=== PATIENT | female | born 1950 | race Caucasian/White ===

== ENCOUNTER 2017-06-09 14:43 | Outpatient (CLI) | payer MEDICARE, BC ==
--- NOTE | 2017-06-16 11:32 | MMO ---
BILATERAL SCREENING MAMMOGRAM: Date: 06/09/2017 HISTORY: A 67-year-old female. Routine screening mammography. COMPARISON: 10/19/2015, 03/05/2015, 05/13/2013, 03/10/2012. TECHNIQUE: CC and MLO views of both breasts are submitted for interpretation. This patient's mammogram is reviewed with the assistance of computer-aided detection. FINDINGS: The breasts are composed of heterogeneously dense fibroglandular tissue which limits sensitivity of m ammography and the detection of underlying malignancy. Bilaterally, no suspicious dominant mass, architectural distortion, or suspicious calcifications. Bi lateral benign-appearing calcifications are identified. IMPRESSION: BIRADS 2: Benign Finding(s) RECOMMENDATION: Annual mammogram. POS: [facility]
== END 2017-06-09 14:44 | disposition home or self-care (01) ==
LOC: SCSMAMMO 14:43
PROVIDERS: ATTEND Obstetrics & Gynecology
DX: Z12.31 Encounter for screening mammogram for malignant neoplasm of breast (principal)
CPT/HCPCS: 77067; G0202

== ENCOUNTER 2018-01-25 15:14 | Emergency (ER) | payer MEDICARE, BC ==
[~2018-01-25 15:14] MED LIST: ISOVUE-370 76%-LOCM 1 ML ONE
[2018-01-25 16:06] LABS: #Eosinphils 0.1 thou/uL (0.0-0.7); #Lymphocytes 1.3 thou/uL (1.20-3.40); #Monocytes 0.9 thou/uL (0.11-0.59); #Neutrophils 8.1 thou/uL (1.40-6.50); %Basophils 0.2 % (0.0-1.0); %Eosinophils 0.7 % (0.0-10.0); %Lymphocytes 12.3 % (21.0-51.0); %Monocytes 8.5 % (0.0-10.0); %Neutrophils 78.2 % (42.0-75.0); Mean Corpuscular HGB CONC 34.7 g/dL (32.0-36.0); Mean Corpuscular Hemoglobin 36.1 pg (27.0-31.0); Mean Platelet Volume 6.3 fL (7.4-10.4); Platelet Count 219 thou/uL (130-400); RBC Distribution Width 12.6 % (11.5-14.5); Red Blood Cell (RBC) Count 3.31 mill/uL (4.20-5.40); White Blood Cell (WBC) Count 10.4 thou/uL (4.8-10.8)
[2018-01-25 16:25] LABS: ALT (SGPT) 27 U/L (8-55); AST (SGOT) 26 U/L (5-34); Albumin 4.6 g/dL (3.4-4.8); Alkaline Phosphatase 67 U/L (40-150); Anion Gap 13 mmol/L (10-20); BUN (Urea Nitrogen) 11 mg/dL (9.8-20.1); Bilirubin, Total 0.7 mg/dL (0.2-1.2); Calc. Creatinine Clearance 0 mL/min (70-130); Carbon Dioxide 23 mmol/L (23-31); Chloride 106 mmol/L (98-107); Estimated GFR-MDRD 85; Globulin 2.7 g/dL (2.4-3.5); Glucose 104 mg/dL (80-115); Lipase 10 U/L (8-78); Potassium 3.5 mmol/L (3.5-5.1); Protein, Total 7.3 g/dL (6.0-8.3); Sodium 138 mmol/L (136-145)
[2018-01-25 18:41] LABS: CKMB 1.8 ng/mL (0-6.6); Troponin I Less than 0.010 ng/mL (< 0.028)
--- NOTE | 2018-01-25 19:33 | RAD ---
PORTABLE CHEST ONE VIEW: 01/25/2018 5:59 p.m. HISTORY: Chest pain. Abdominal pain. Nausea. Diarrhea. COMPARISON: 10/19/2012 FINDINGS: Left-sided AICD remains in place. Heart size is borderline. Lungs are well expanded without focal a reas of consolidation, pneumothoraces, newton pulmonary edema, or pleural effusions seen. IMPRESSION: No acute process. POS: [facility]
--- NOTE | 2018-01-25 19:56 | CT ---
CT ABDOMEN AND PELVIS WITH IV CONTRAST: HISTORY: Diffuse abdominal pain and diarrhea. The patient has a history of CML and is being treated with chem otherapy currently. COMPARISON: There are no previous exams for comparison. FINDINGS: The lung bases are clear. The liver, spleen, pancreas, and adrenal glands are normal. There are low density lesions in the kidneys, likely cysts, the largest measuring 2.5 cm, in the left renal cortex . No free air, free fluid, or lymphadenopathy is seen in the abdomen or pelvis. The small bowel loops are not abnormally dilated. There is thickening of the wall of the colon with a few colonic diverticula. Degenerative changes are present in the spine. There is no evidence of a neurysmal dilatation of the abdominal aorta. No calcified gallstones are present. The patient appea rs post hysterectomy. IMPRESSION: 1. Findings suspicious for colitis. 2. Mild colonic diverticulosis. 3. Probable renal cysts. Confirmation with bilateral renal ultrasound is recommended. POS: [facility]
[2018-01-25 20:01] LABS: Bilirubin Negative (Negative); Blood, Urine Trace (Negative); Clarity CLEAR (Clear); Glucose, Urine (Dipstick) Negative (Negative); Leukocyte Small (Negative); Nitrite Negative (Negative); Protein, Urine (Dipstick) Negative (Neg-Trace); Urobilinogen 0.2 mg/dL (0.2-1.0); pH, Urine 5.5 (5.0-9.0)
[2018-01-25] MEDS ORDERED: Ondansetron HCl/PF 4 MG/2 ML Vial ONE ×2 (20:01→20:03)
[2018-01-25] MEDS ORDERED: Levofloxacin 500 mg/D5W 100 ml Premix Bag ONE (20:03)
[2018-01-25] MEDS ORDERED: Ketorolac Tromethamine 30 MG/ML VIAL ONE (20:03)
[2018-01-25 20:04] LABS: Bacteria/HPF None Seen HPF (None Seen); Hyaline Casts/LPF 0-3 HYALINE CAST LPF (0-3 Hyaline); Pathc Cast-AUWi Flag 0.58 (0-2.49); RBC/HPF 0-3 HPF (0-3); Squamous Epithelial 0-3 HPF (0-3); WBC/HPF 21-50 HPF (0-3)
[2018-01-25] MEDS ORDERED: metroNIDAZOLE 500 MG in Premix Bag 1 BAG IVPB SCH (20:15)
--- NOTE | 2018-01-25 20:39 | ULT ---
RIGHT UPPER QUADRANT ULTRASOUND: HISTORY: Abdominal pain. FINDINGS: The liver demonstrates a homogeneous echotexture without focal mass or intrahepatic ductal dilatation . No gallstones, gallbladder wall thickening, or pericholecystic fluid is seen, and the right kidney is normal. No free fluid is noted in the Villafana pouch. The visualized portions of the pancreas a re unremarkable. CBD measures 5 mm in diameter. IMPRESSION: No evidence of cholelithiasis. POS: [facility]
== END 2018-01-25 22:10 | disposition home or self-care (01) ==
LOC: ERS 15:14
DX: K52.9 Noninfective gastroenteritis and colitis, unspecified (principal); I42.9 Cardiomyopathy, unspecified; C44.92 Squamous cell carcinoma of skin, unspecified; Z85.6 Personal history of leukemia; Z79.899 Other long term (current) drug therapy
CPT/HCPCS: 36415; 71045; 74177; 76705; 80053; 81003; 81015; 82553; 83690; 83880; 84484; 85025; 93005; 96365; 96367; 96375; J1885; J1956; J2405

== ENCOUNTER 2019-05-16 10:43 | Outpatient (CLI) | payer MEDICARE, BC ==
[~2019-05-16 10:43] MED LIST changes: +EPINEPHrine 1 MG/ML AMP ONE; -ISOVUE-370 76%-LOCM 1 ML ONE; +Iopamidol 300 61% 50 ML VIAL FS ONE; +Lidocaine 1% PF 10 ML AMP ONE
--- NOTE | 2019-05-16 11:38 | CT ---
Cervical spine CT without contrast: 05/16/2019 COMPARISON: None HISTORY: Right shoulder pain with radiculopathy involving the right "shoulder blade" and right arm TECHNIQUE: Axial CT imaging at 2.5 mm intervals from skull base through lung apices without contrast. Coronal and sagittal reformatted imaging obtained. FINDINGS: The C1 ring, dens, occipital condyles, craniocervical junction, and cervicothoracic junctio n appear unremarkable. Imaged lung apices appear unremarkable. C2-3: Minimal facet and uncovertebral osteophyte formation on the right. No osseous cause of signific ant central canal or neural foraminal stenosis. C3-4: Mild facet and uncovertebral osteophyte formation, left greater than right. There is 3 mm of an terolisthesis. Mild left neural foraminal stenosis. C4-5: There is significant right-sided facet and uncovertebral osteophyte formation with mild/moderat e right neural foraminal stenosis. No osseous cause of significant central canal or left neural foraminal stenosis. C5-6: Mild disc space narrowing. Mild bilateral facet and uncovertebral osteophyte formation. Mild ri ght neural foraminal stenosis. No osseous cause of significant central canal or left neural foraminal stenosis. C6-7: Mild uncovertebral osteophyte formation on the right with probable mild right neural foraminal stenosis. No osseous cause of significant central canal or left neural foraminal stenosis. C7-T1: No osseous cause of significant central canal or neural foraminal stenosis. Evaluation for central canal and/or neural foraminal stenosis is limited on routine CT. If clinically warranted, further assessment via CT myelogram may be beneficial. IMPRESSION: Cervical spine degenerative change as described above. No acute osseous abnormality.
--- NOTE | 2019-05-16 13:46 | RAD ---
RIGHT SHOULDER ARTHROGRAM: EXPOSURE: 0.6 minutes; 97.1 mGy*^m2. HISTORY: Right shoulder pain. FINDINGS: Three views right shoulder lab aide radiograph does not demonstrate any fracture or dislocation. Mild de generative change in the acromioclavicular joint space. Visualized right ribs are unremarkable. Successful right shoulder arthrogram. A total of 9 cc of contrast was administered into the joint spa ce. No immediate or postprocedural complications. TECHNIQUE: Consent was obtained to perform a right shoulder arthrogram. Right shoulder was prepped and draped in a sterile fashion. 1% lidocaine, buffered with sodium bicarbonate was used for local anesthesia. Under fluoroscopic guidance, a 22-gauge spinal needle was advanced into the right shoulder joint spac e. Contrast was administered. Patient tolerated the procedure well. No immediate or postprocedural complications. IMPRESSION: Successful right shoulder arthrogram. Transcribed Date/Time: 05/16/2019 2:08 PM
--- NOTE | 2019-05-16 16:20 | CT ---
CT ARTHROGRAM OF THE RIGHT UPPER EXTREMITY: Indication: 69-year-old female with right shoulder pain. Technique: Multiple CT images were obtained of the right shoulder following intraarticular administration of dil matt CT contrast solution. Please see the separately dictated right shoulder arthrogram for details co ncerning the shoulder arthrogram technique. FINDINGS: There is a full thickness tear involving the supraspinatus and anterior infraspinatus near the footpr int measuring approximately 1.3 x 1.2 cm in its greatest mediolateral dimension. The tear originates approximately 1 cm from the level of the footprint. There is some intragenic delamination of the skin into the anterior infraspinatus tendon to the level of the musculotendinous junction. The biceps tendon is located. The biceps anchor complex appears intact. The superior glenolabrum appe ars intact. The glenohumeral articular surface appears relatively well maintained. Small ossicle is s een within the posterior inferior glenoid labrum on Image 30 of Series 2. Anterior inferior glenohume ral labral ligament complex appears intact. There is mild AC joint osteoarthrosis. There is an anterior inferior projecting acromial spur, on Martha ge 52 of the coronal series and Image 31 of the sagittal series, which may predispose to symptoms of impingement. Visualized right lung is clear. There is partial visualization of a multi-lead AICD. No enlarged lymph nodes are evident. IMPRESSION: 1. Full thickness rotator cuff tear involving the posterior supraspinatus and anterior infraspinatus at the level of the conjoined tendon. The tear originates approximately 1 cm from its level of attach ment. There is some intratendinous delamination that extends into the anterior infraspinatus tendon t o the level of the musculotendinous junction. 2. Mild AC joint osteoarthrosis with a prominent anterior inferior projecting acromial spur which may predispose to symptoms of impingement. POS: [facility]
== END 2019-05-16 10:44 | disposition home or self-care (01) ==
LOC: RAD 10:43
PROVIDERS: ATTEND Orthopaedic Surgery
DX: M25.511 Pain in right shoulder (principal); M75.121 Complete rotator cuff tear or rupture of right shoulder, not specified as traumatic; M19.011 Primary osteoarthritis, right shoulder; M47.812 Spondylosis without myelopathy or radiculopathy, cervical region
CPT/HCPCS: 23350; 72125; J0171; J2001; Q9967

== ENCOUNTER 2019-06-27 09:33 | Observation (INO) | payer MEDICARE, BC ==
[2019-06-27] MEDS ORDERED: Lorazepam 2 MG/ML VIAL ONE (09:59)
[2019-06-27 10:07] LABS: #Basophils 0.1 thou/uL (0.0-0.2); #Eosinphils 0.3 thou/uL (0.0-0.7); #Lymphocytes 2.1 thou/uL (1.20-3.40); #Monocytes 0.5 thou/uL (0.11-0.59); #Neutrophils 3.3 thou/uL (1.40-6.50); %Basophils 1.4 % (0.0-1.0); %Eosinophils 4.6 % (0.0-10.0); %Lymphocytes 33.5 % (21.0-51.0); %Monocytes 7.4 % (0.0-10.0); %Neutrophils 53.1 % (42.0-75.0); Hemoglobin 12.7 g/dL (12.0-16.0); Mean Corpuscular HGB CONC 33.2 g/dL (32.0-36.0); Mean Corpuscular Hemoglobin 36.6 pg (27.0-31.0); Mean Platelet Volume 7.2 fL (7.4-10.4); Platelet Count 187 thou/uL (130-400); Red Blood Cell (RBC) Count 3.45 mill/uL (4.20-5.40); White Blood Cell (WBC) Count 6.2 thou/uL (4.8-10.8)
--- NOTE | 2019-06-27 10:26 | RAD ---
PORTABLE CHEST 1 VIEW: DATE: 06/27/2019. TIME: 9:39 a.m. HISTORY: Atrial fibrillation, heart palpitations. FINDINGS: Comparison is made with the exam of 01/25/2018. Left-sided AICD remains in place. The heart size is borderline but stable. The aorta is tortuous. The lungs are expanded without lobar consolidation, pneumothoraces, newton pulmonary edema, or pleural effusions. IMPRESSION: No acute process. POS: [facility]
[2019-06-27] MEDS ORDERED: Diltiazem HCl 125 MG, Admixture Fee 1 EACH in Sodium Chloride 0.9% 100 ML IVPB SCH (10:30)
[2019-06-27 10:34] LABS: ALT (SGPT) 17 U/L (8-55); AST (SGOT) 19 U/L (5-34); Albumin 4.3 g/dL (3.4-4.8); Alkaline Phosphatase 51 U/L (40-110); Anion Gap 12 mmol/L (10-20); BUN (Urea Nitrogen) 11 mg/dL (9.8-20.1); Bilirubin, Total 0.4 mg/dL (0.2-1.2); Calc. Creatinine Clearance 0 mL/min (70-130); Calcium 9.2 mg/dL (7.8-10.44); Carbon Dioxide 25 mmol/L (23-31); Chloride 106 mmol/L (98-107); Estimated GFR-MDRD 63; Globulin 2.2 g/dL (2.4-3.5); Glucose 98 mg/dL (80-115); Lipase 18 U/L (8-78); Potassium 3.8 mmol/L (3.5-5.1); Protein, Total 6.5 g/dL (6.0-8.3); Sodium 139 mmol/L (136-145)
[2019-06-27 10:37] LABS: Band 3 % (5-11); Lymphocytes 30 % (21-51); MDiff Complete? YES; Macrocytosis SLIGHT = 6-15 cells (100X) (0-5/hpf); Monocytes 6 % (0-10); Neutrophil 48 % (42-75); Platelet Morphology Comment Appears Adequate; Reactive Lymphocytes 13 % (0-10)
[2019-06-27] MEDS ORDERED: Ondansetron PF 4 MG/2 ML Vial IVP PRN (12:07)
[2019-06-27] MEDS ORDERED: Acetaminophen 325 MG TAB PO PRN (12:07)
[2019-06-27] MEDS ORDERED: Zolpidem Tartrate 5 MG TAB PO PRN (12:07)
--- NOTE | 2019-06-27 12:26 | PDOC.HOSPP ---
- Objective Result Diagrams: 06/27/19 09:58 06/27/19 09:58
--- NOTE | 2019-06-27 13:11 | ULT ---
LEFT LOWER EXTREMITY VENOUS DOPPLER ULTRASOUND: 06/27/2019 HISTORY: Pain in the left leg. Assess for DVT. COMPARISON: None. TECHNIQUE: Multiplanar tavarez-scale sonographic imaging of the venous structures of the left lower extremity obtai óscar with color-flow and spectral analysis. FINDINGS: The left common femoral vein, greater saphenous vein, profunda femoral vein, femoral vein, popliteal vein and posterior tibial vein are patent. Normal blood flow, augmentation and compression within the deep venous system on the left. No evidence for DVT. IMPRESSION: No evidence for deep venous thrombosis of the left lower extremity. POS: [facility]
--- NOTE | 2019-06-27 13:30 | HP ---
HISTORY OF PRESENT ILLNESS: Ms. Rosario is a patient of Dr. Mark Fletcher, who at 9:00 am this morning had a shooting, burning pain down the inside of her left leg from the groin down to her ankle. It was severe, it is now resolved. She has had a pinched nerve in her cervical spine with pain into her right arm, for which she received an injection into her C-spine 2 weeks ago. When she came in, she was noted to be dizzy with palpitations and the patient based on a rhythm strip, was placed on diltiazem IV for atrial fibrillation with rapid ventricular response. The first 12-lead tracing revealed a paced rhythm with a dual-chamber pacemaker. The patient had no chest pain or smothering spells. PAST MEDICAL HISTORY: Pertinent for a dilated cardiomyopathy, for which she is followed by Dr. Mary Jo Linda. She takes a high dose of beta vitaly and LIYA inhibitor for same. She has an AICD placed because of the cardiomyopathy. 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 CURRENT MEDICATIONS: 1. Coreg 50 mg p.o. b.i.d. 2. Zestril 40 mg a day. 3. Gleevec one tablet a day. 4. Lasix 40 mg p.r.n. edema. 5. Bupropion hydrochloride 150 mg a day. ALLERGIES: SHE IS ALLERGIC TO MORPHINE. SURGICAL HISTORY: Bilateral cataract surgery, left shoulder rotator cuff repair, and right foot surgery 15 to 20 years ago. FAMILY HISTORY: Father had high blood pressure. Mother with coronary artery disease. Brother at 51 of a ruptured aneurysm. SOCIAL HISTORY: She is . DNAR confirmed by at bedside. No tobacco. Drinks wine socially. REVIEW OF SYSTEMS: CONSTITUTIONAL: Lightheadedness, palpitations with present illness, resolved. No headaches. VISUAL: No double vision, blurred vision, or flashing lights. EAR, NOSE, AND THROAT: No ear pain or drainage. No nasal bleeding. No trouble swallowing. CARDIAC: No chest pain, orthopnea, or paroxysmal nocturnal dyspnea. RESPIRATION: No cough, wheezing, or asthma. GASTROINTESTINAL: No nausea, vomiting, diarrhea, or constipation. GENITOURINARY: No hematuria or dysuria. MUSCULOSKELETAL: Some occasional swelling in her right ankle related to past surgery. NEUROLOGICAL: No strokes, seizures, or focal weakness. PSYCHIATRIC: No anxiety or depression. SKIN: No bruises or rash. HEME/LYMPH: No tender or swollen lymph nodes in axilla, inguinal, or cervical area. PHYSICAL EXAMINATION: VITAL SIGNS: Blood pressure 107/73, pulse 70, respirations 16, and O2 saturation 100% on room air. HEAD, EYES, EARS, NOSE, AND THROAT: Reveal pupils are equal and round with implants. Extraocular movements are intact. Sclerae are white. Tympanic membranes clear. Nose clear. Oral mucous membranes are wet. Dental hygiene is good. NECK: Supple without jugular venous distention, adenopathy, thyromegaly, or bruits. CHEST: Clear to auscultation and percussion. HEART: Had a regular rate and rhythm. First and second second heart sounds are clear. There are no appreciated murmurs or gallops. ABDOMEN: Soft. Bowel sounds are normal. There is no hepatosplenomegaly. No mass. No rebound. No bruits. EXTREMITIES: Reveal no cyanosis, clubbing, or edema. Pulses; carotid, radial, femoral, and dorsalis pedis pulses intact. SKIN: Warm and dry without bruises or rash. HEME/LYMPH: No tender or swollen lymph nodes in axilla, inguinal, or cervical area. NEUROLOGIC: Cranial nerves 2 through 12 are intact. Deep tendon reflexes symmetric. Toes are downgoing. IMAGING: EKG personally reviewed dual-chamber pacemaker with atrial pacing. Chest x-ray, AICD in the left upper chest. No cardiomegaly, CHF, or infiltrate personally reviewed. LABORATORY DATA: CBC shows a mild macrocytic indices, otherwise normal. Comprehensive metabolic profile normal. Troponin normal. ADMITTING DIAGNOSES: Atrial fibrillation, dilated cardiomyopathy, chronic myelogenous leukemia, automatic implantable cardioverter defibrillator, and left leg pain. ASSESSMENT: I have searched her EKGs and her monitors rhythms. I can find no documentation of any arrhythmia. On some of the rhythms, the T-wave is enlarged consistent with a QRS and is read as a pulse of 150 by the computer, but in fact it is sinus rhythm at a rate of 70. The patient will be placed in the hospital. Cardiology will be consulted. Venous ultrasound will be done. Further discussion later. Job ID: [id number]
[2019-06-27 15:22] VITALS: BP 90/62; TEMP 97.4
--- NOTE | 2019-06-27 16:14 | DIS ---
DATE OF ADMISSION: 06/27/2019 DATE OF DISCHARGE: 06/27/2019 Transfer of care. PRIMARY CARE PROVIDER: Dr. Mark Fletcher. FINAL DIAGNOSES: 1. Chronic myelogenous leukemia. 2. Cardiomyopathy. 3. Presence of automatic implantable cardioverter-defibrillator. 4. Right leg pain. DISCHARGE MEDICINES: Same as home medicines. 1. Zestril 40 mg a day. 2. Coreg 50 mg twice a day. 3. Gleevec 1 tablet a day. ALLERGIES: TO MORPHINE. PENDING AT THE TIME OF DISCHARGE: Nothing. CODE STATUS: DNAR. HOSPITAL COURSE: The patient was referred to the Hospitalist Service by [facility] for atrial fibrillation with rapid ventricular response. The patient presented with left leg pain. After thorough investigation, it turns out that the rhythm strip was misread, and after interrogation of the patient's defibrillator pacemaker, she had normal sinus rhythm at 70 throughout the multiple-hour period. This morning, the patient did complain of a burning pain from her left groin down into her left leg into the left calf. She has negative straight leg raising studies. She had an unimpressive laboratory workup. She had a normal venous Doppler of the left leg. I have discussed all of this with her. She is comfortable with discharge. I did discuss the provisional diagnosis etc., at length with Dr. Linda, which she agreed with me that it was not correct that is the atrial fibrillation. She is being discharged to follow up with Dr. Fletcher in 3 days. The etiology of her transient left leg pain, which by the way, has resolved that started 9 o'clock this morning, is obscured, but does not merit workup right at this present time as her venous vasculature is good. Her arterial vascular is good with good pulses. Warmth in her foot. Neurological exam with deep tendon reflexes and stretch is normal. It gives no direction in working this up. Job ID: [id number]
[2019-06-28] MEDS ORDERED: Enoxaparin Sodium 40 MG/0.4 ML SYRINGE SC SCH (09:00)
== END 2019-06-27 16:07 | disposition home or self-care (01) ==
LOC: ERS 09:33 → ERHOLD 11:59 → 2SW 15:07
PROVIDERS: ADMIT Internal Medicine; ATTEND Internal Medicine
DX: M79.605 Pain in left leg (principal); C92.10 Chronic myeloid leukemia, BCR/ABL-positive, not having achieved remission; I42.0 Dilated cardiomyopathy; Z66 Do not resuscitate; Z79.899 Other long term (current) drug therapy; Z88.5 Allergy status to narcotic agent; Z88.8 Allergy status to other drugs, medicaments and biological substances; Z95.810 Presence of automatic (implantable) cardiac defibrillator
CPT/HCPCS: 71045; 80053; 83690; 84484; 85025; 93005; 93971; 96365; 96366; 96375; 96376; 99285; G0378 ×2; J2060; J3490

== ENCOUNTER 2019-08-09 06:19 | Outpatient (CLI) | payer MEDICARE, BC ==
[2019-08-09 09:59] LABS: #Basophils 0.1 thou/uL (0.0-0.2); #Eosinphils 0.3 thou/uL (0.0-0.7); #Lymphocytes 2.4 thou/uL (1.20-3.40); #Monocytes 0.6 thou/uL (0.11-0.59); #Neutrophils 3.1 thou/uL (1.40-6.50); %Basophils 1.1 % (0.0-1.0); %Eosinophils 4.6 % (0.0-10.0); %Lymphocytes 36.6 % (21.0-51.0); %Monocytes 9.7 % (0.0-10.0); Hemoglobin 13.2 g/dL (12.0-16.0); Mean Corpuscular HGB CONC 33.4 g/dL (32.0-36.0); Mean Corpuscular Hemoglobin 36.4 pg (27.0-31.0); Mean Platelet Volume 8.5 fL (7.4-10.4); Platelet Count 187 thou/uL (130-400); RBC Distribution Width 11.4 % (11.5-14.5); Red Blood Cell (RBC) Count 3.64 mill/uL (4.20-5.40); White Blood Cell (WBC) Count 6.5 thou/uL (4.8-10.8)
[2019-08-09 10:19] LABS: Anion Gap 12 mmol/L (10-20); BUN (Urea Nitrogen) 16 mg/dL (9.8-20.1); Calc. Creatinine Clearance 0 mL/min (70-130); Calcium 9.6 mg/dL (7.8-10.44); Carbon Dioxide 25 mmol/L (23-31); Chloride 106 mmol/L (98-107); Estimated GFR-MDRD 76; Glucose 93 mg/dL (80-115); Potassium 4.3 mmol/L (3.5-5.1); Sodium 139 mmol/L (136-145)
== END 2019-08-09 06:20 | disposition home or self-care (01) ==
LOC: LABBT 06:19
PROVIDERS: ATTEND Orthopaedic Surgery
DX: Z01.812 Encounter for preprocedural laboratory examination (principal); M75.101 Unspecified rotator cuff tear or rupture of right shoulder, not specified as traumatic
CPT/HCPCS: 80048; 85025; 93005; 93010

== ENCOUNTER 2019-08-18 07:00 | Day surgery (SDC) | payer MEDICARE, BC ==
[2019-08-09 08:16] VITALS: BMI 30.7
[2019-08-18] MEDS ORDERED: Midazolam HCl 2 mg/2 ml Vial ONE (08:11)
[2019-08-18] MEDS ORDERED: Fentanyl 100 MCG/2 ML VIAL ONE ×2 (08:11→08:35)
[2019-08-18] MEDS ORDERED: Lidocaine 1% (PF) 30 ML VIAL ONE (08:22)
[2019-08-18] MEDS ORDERED: Lidocaine 2% Jelly 5 ML TUBE ONE (08:35)
[2019-08-18] MEDS ORDERED: traMADol HCl 50 MG TAB PO PRN ×2 (08:43)
[2019-08-18] MEDS ORDERED: Zolpidem Tartrate 5 MG TAB PO PRN (08:43)
[2019-08-18] MEDS ORDERED: Fentanyl 100 MCG/2 ML VIAL IV PRN (08:43)
[2019-08-18] MEDS ORDERED: HYDROcodone/Acetaminophen 10/325 mg Tablet PO PRN ×2 (08:43)
[2019-08-18] MEDS ORDERED: Promethazine HCl 25 MG/ML VIAL IM PRN (08:43)
[2019-08-18] MEDS ORDERED: Ropivacaine 0.2% 550 ML 550 ML NERVE BLCK SCH (08:43)
[2019-08-18] MEDS ORDERED: Acetaminophen 325 MG TAB PO PRN (08:43)
[2019-08-18] MEDS ORDERED: Ondansetron PF 4 MG/2 ML Vial IVP PRN (08:43)
[2019-08-18] MEDS ORDERED: Ropivacaine 0.5% HCl/PF (150 MG/30 ML VIAL) ONE (11:30)
[2019-08-18] MEDS ORDERED: Dexamethasone 20 MG/5 ML VIAL ONE (11:30)
[2019-08-18] MEDS ORDERED: Ondansetron PF 4 MG/2 ML Vial ONE (11:30)
[2019-08-18] MEDS ORDERED: PROPOFOL 200 MG/20 ML VIAL ONE (11:30)
[2019-08-18] MEDS ORDERED: Glycopyrrolate 0.2 MG/ML 5 ML SYRINGE ONE (11:30)
[2019-08-18] MEDS ORDERED: Rocuronium Bromide 10 MG/ML (10ML VIAL) ONE (11:30)
[2019-08-18] MEDS ORDERED: Ropivacaine 0.2% HCl/PF (40 MG/20 ML VIAL) ONE (11:30)
[2019-08-18] MEDS ORDERED: EPHEDRINE 25 MG/5 ML SYRINGE ONE (11:30)
[2019-08-18] MEDS ORDERED: Lidocaine 1% PF 5 ML VIAL ONE (11:30)
--- NOTE | 2019-08-18 15:15 | OP ---
DATE OF PROCEDURE: 08/18/2019 PREOPERATIVE DIAGNOSIS: Rotator cuff tear, right. POSTOPERATIVE DIAGNOSIS: Rotator cuff tear, right. PROCEDURE PERFORMED: Arthroscopic subacromial decompression and rotator cuff repair, double row using two Arthrex corkscrews and two self-punching [place] Arthrex anchors. ANESTHESIA: General. ESTIMATED BLOOD LOSS: Minimal. SPECIMEN: None. DRAINS: None. COMPLICATIONS: None. DESCRIPTION OF PROCEDURE: The patient was taken to the operating room, where general anesthesia was induced. She was placed in the left lower decubitus position. Right arm was placed in 15 pounds of traction and prepped and draped in a sterile fashion. Scope was placed in glenohumeral joint. There was no significant arthritis. Biceps tendon was in good condition. There was a full-thickness rotator cuff tear. The scope was placed in the subacromial bursa. Bursectomy was performed. CA ligament was taken down. Anterior and inferior acromioplasty was performed. The rotator cuff was mobilized. It was quite retracted. I debrided the margins of the rotator cuff tear. I freshened up the edge of the greater tuberosity with a bur. Two anchors were passed through the tuberosity and passed through the rotator cuff and tied down with good watertight repair, then reinforced with the double row type repair. The shoulder was then drained. Portals were closed with nylon suture. Sterile dressings were applied. The patient was placed in a sling. There were no complications. Job ID: [id number]
== END 2019-08-18 13:25 | disposition home or self-care (01) ==
LOC: SDC 07:00
PROVIDERS: ATTEND Orthopaedic Surgery
PROC: 0LQ14ZZ Repair Right Shoulder Tendon, Percutaneous Endoscopic Approach (ICD-10-PCS; principal; 2019-08-18)
PROC: 0RNJ4ZZ Release Right Shoulder Joint, Percutaneous Endoscopic Approach (ICD-10-PCS; 2019-08-18)
PROC: 3E0T3BZ Introduction of Anesthetic Agent into Peripheral Nerves and Plexi, Percutaneous Approach (ICD-10-PCS; 2019-08-18)
DX: M75.121 Complete rotator cuff tear or rupture of right shoulder, not specified as traumatic (principal); M19.011 Primary osteoarthritis, right shoulder; G89.18 Other acute postprocedural pain; G89.29 Other chronic pain; M54.2 Cervicalgia; M54.9 Dorsalgia, unspecified; I42.9 Cardiomyopathy, unspecified; Z79.899 Other long term (current) drug therapy; Z88.5 Allergy status to narcotic agent; Z95.0 Presence of cardiac pacemaker
CPT/HCPCS: 29826; 29827; 64416; 97139 ×2; A4306; C1713; J0690; J1100; J2001; J2250; J2405; J2704; J2795; J3010

== ENCOUNTER 2021-03-19 09:36 | Outpatient (CLI) | payer MEDICARE, BC ==
[2021-03-19 23:09] LABS: SARS-CoV-2 PCR by NAA Not Detected (NotDetected)
== END 2021-03-19 09:37 | disposition home or self-care (01) ==
LOC: LABBT 09:36
PROVIDERS: ATTEND Internal Medicine Gastroenterology
DX: Z01.812 Encounter for preprocedural laboratory examination (principal); Z12.11 Encounter for screening for malignant neoplasm of colon; Z20.822 Contact with and (suspected) exposure to COVID-19
CPT/HCPCS: U0003; U0005

== ENCOUNTER 2021-03-21 07:37 | Day surgery (SDC) | payer MEDICARE, BC ==
[2021-03-20 10:03] VITALS: BMI 29.0
[2021-03-21] MEDS ORDERED: Midazolam HCl 2 mg/2 ml Vial ONE (09:24)
[2021-03-21] MEDS ORDERED: Lidocaine 1% PF 5 ML VIAL ONE (09:59)
[2021-03-21] MEDS ORDERED: PROPOFOL 200 MG/20 ML VIAL ONE (09:59)
[2021-03-21] MEDS ORDERED: ePHEDrine 50 MG/ML VIAL ONE (09:59)
== END 2021-03-21 11:25 | disposition home or self-care (01) ==
LOC: SDC 07:37
PROVIDERS: ATTEND Internal Medicine Gastroenterology
PROC: 0DBN8ZX Excision of Sigmoid Colon, Via Natural or Artificial Opening Endoscopic, Diagnostic (ICD-10-PCS; principal; 2021-03-21)
PROC: 0DBL8ZX Excision of Transverse Colon, Via Natural or Artificial Opening Endoscopic, Diagnostic (ICD-10-PCS; 2021-03-21)
DX: Z12.11 Encounter for screening for malignant neoplasm of colon (principal); K57.30 Diverticulosis of large intestine without perforation or abscess without bleeding; K64.8 Other hemorrhoids; K62.89 Other specified diseases of anus and rectum; I42.9 Cardiomyopathy, unspecified; Z85.6 Personal history of leukemia; Z86.010 Personal history of colon polyps; Z79.899 Other long term (current) drug therapy; Z88.5 Allergy status to narcotic agent; Z95.810 Presence of automatic (implantable) cardiac defibrillator
CPT/HCPCS: 88305; J2250; J2704; J3490

== ENCOUNTER 2021-04-11 05:13 | Inpatient (IN) | payer MEDICARE, BC ==
[2021-04-11] MEDS ORDERED: Fentanyl 100 MCG/2 ML VIAL ONE (05:45)
[2021-04-11] MEDS ORDERED: Ondansetron PF 4 MG/2 ML Vial ONE ×2 (05:46)
[2021-04-11 06:41] LABS: Hemoglobin 12.1 g/dL (12.0-16.0); Mean Corpuscular HGB CONC 34.5 g/dL (32.0-36.0); Mean Corpuscular Hemoglobin 38.5 pg (27.0-31.0); Mean Platelet Volume 7.4 fL (7.4-10.4); Platelet Count 182 thou/uL (130-400); RBC Distribution Width 11.7 % (11.5-14.5); Red Blood Cell (RBC) Count 3.13 mill/uL (4.20-5.40); White Blood Cell (WBC) Count 5.9 thou/uL (4.8-10.8)
[2021-04-11 06:42] LABS: #Eosinphils 0.1 thou/uL (0.0-0.7); #Lymphocytes 1.7 thou/uL (1.20-3.40); #Monocytes 0.4 thou/uL (0.11-0.59); #Neutrophils 3.6 thou/uL (1.40-6.50); %Basophils 0.8 % (0.0-1.0); %Eosinophils 1.7 % (0.0-10.0); %Lymphocytes 29.2 % (21.0-51.0); %Monocytes 7.2 % (0.0-10.0); %Neutrophils 61.1 % (42.0-75.0); MDiff Complete? YES; Macrocytosis SLIGHT = 6-15 cells (100X) (0-5/hpf)
[2021-04-11 06:48] LABS: ALT (SGPT) 15 U/L (8-55); AST (SGOT) 22 U/L (5-34); Albumin 3.9 g/dL (3.4-4.8); Alkaline Phosphatase 50 U/L (40-110); Anion Gap 13 mmol/L (10-20); BUN (Urea Nitrogen) 6 mg/dL (9.8-20.1); Bilirubin, Total 0.7 mg/dL (0.2-1.2); Calc. Creatinine Clearance 0 mL/min (70-130); Calcium 9.2 mg/dL (7.8-10.44); Carbon Dioxide 23 mmol/L (23-31); Chloride 108 mmol/L (98-107); Globulin 2.1 g/dL (2.4-3.5); Glucose 128 mg/dL (80-115); Potassium 3.6 mmol/L (3.5-5.1); Sodium 140 mmol/L (136-145)
[2021-04-11] MEDS ORDERED: Ondansetron PF 4 MG/2 ML Vial IVP PRN (09:29)
[2021-04-11] MEDS ORDERED: Fentanyl 100 MCG/2 ML VIAL SLOW IVP PRN (09:32)
[2021-04-11] MEDS ORDERED: Loratadine 10 MG TAB PO PRN (15:20)
[2021-04-11] MEDS: Acetaminophen 325 MG TAB PO PRN (17:03)
[2021-04-11 17:30] LABS: Bacteria/HPF 4+ HPF (None Seen); Bilirubin Negative (Negative); Blood, Urine Negative (Negative); Clarity Clear (Clear); Glucose, Urine (Dipstick) Normal (Negative); Ketone, Urine Negative (Negative); Leukocyte 500 Leu/uL (Negative); Nitrite Negative (Negative); Protein, Urine (Dipstick) Negative (Neg-Trace); RBC/HPF 0-3 HPF (0-3); Specific Gravity, Urine 1.003 (1.002-1.036); Squamous Epithelial 0-3 HPF (0-3); Urobilinogen Normal mg/dL (Less than 2); WBC/HPF Greater than 50 HPF (0-3); pH, Urine 6.5 (5.0-9.0)
[2021-04-11 17:33] LABS: Urine Culture Reflex Yes Yes
[2021-04-11] MEDS: cefTRIAXone\\ROCEPHIN 1 GM in Sodium Chloride 0.9% 100 ML IVPB SCH (20:35)
[2021-04-11] MEDS ORDERED: Sacubitril 49 MG/Valsartan 51 MG TABLET PO SCH (21:00)
[2021-04-11] MEDS: Lorazepam 0.5 MG TAB PO PRN (22:06)
[2021-04-11] MEDS: buPROPion 75 MG TAB PO SCH (22:06)
[2021-04-12 01:05] LABS: SARS-CoV-2 PCR by NAA Not Detected (NotDetected)
[2021-04-12 05:27] LABS: #Eosinphils 0.1 thou/uL (0.0-0.7); #Lymphocytes 1.6 thou/uL (1.20-3.40); #Monocytes 0.5 thou/uL (0.11-0.59); %Basophils 0.8 % (0.0-1.0); %Eosinophils 1.5 % (0.0-10.0); %Lymphocytes 29.9 % (21.0-51.0); %Neutrophils 57.8 % (42.0-75.0); Hemoglobin 11.2 g/dL (12.0-16.0); Mean Corpuscular HGB CONC 33.9 g/dL (32.0-36.0); Mean Corpuscular Hemoglobin 38.1 pg (27.0-31.0); Mean Platelet Volume 7.6 fL (7.4-10.4); Platelet Count 160 thou/uL (130-400); RBC Distribution Width 11.5 % (11.5-14.5); Red Blood Cell (RBC) Count 2.96 mill/uL (4.20-5.40); White Blood Cell (WBC) Count 5.2 thou/uL (4.8-10.8)
[2021-04-12 05:52] LABS: Anion Gap 12 mmol/L (10-20); BUN (Urea Nitrogen) 5 mg/dL (9.8-20.1); Calc. Creatinine Clearance 88 mL/min (70-130); Calcium 8.8 mg/dL (7.8-10.44); Carbon Dioxide 25 mmol/L (23-31); Chloride 107 mmol/L (98-107); Glucose 95 mg/dL (80-115); Potassium 3.2 mmol/L (3.5-5.1); Sodium 141 mmol/L (136-145)
[2021-04-12] MEDS ORDERED: Potassium Chloride 20 MEQ TAB PO SCH ×2 (08:00→13:30)
[2021-04-12] MEDS: FLUoxetine HCl 20 MG CAP PO SCH (08:47)
[2021-04-12] MEDS: IMATINIB MESYLATE 400 MG PO SCH (08:47)
[2021-04-12] MEDS ORDERED: Sodium Chloride 0.9% 500 ML IV SCH ×2 (09:15→16:00)
[2021-04-12] MEDS ORDERED: FLU VACC QS2021-22(65YR UP)/PF 240 MCG/0.7 ML SYRINGE IM ONE (13:00)
[2021-04-12 14:29] LABS: Magnesium 1.8 mg/dL (1.6-2.6)
[2021-04-12] MEDS: Acetaminophen 325 MG TAB PO PRN (15:09)
[2021-04-12] MEDS ORDERED: Calcium Carbonate 500 MG ChewTAB PO PRN (16:34)
[2021-04-12] MEDS: buPROPion 75 MG TAB PO SCH (19:48)
[2021-04-12] MEDS: Lorazepam 0.5 MG TAB PO PRN (19:49)
[2021-04-12] MEDS: cefTRIAXone\\ROCEPHIN 1 GM in Sodium Chloride 0.9% 100 ML IVPB SCH (19:50)
[2021-04-13 05:20] LABS: Anion Gap 12 mmol/L (10-20); BUN (Urea Nitrogen) 7 mg/dL (9.8-20.1); Calc. Creatinine Clearance 89 mL/min (70-130); Calcium 8.9 mg/dL (7.8-10.44); Carbon Dioxide 24 mmol/L (23-31); Chloride 109 mmol/L (98-107); Glucose 94 mg/dL (80-115); Potassium 3.7 mmol/L (3.5-5.1); Sodium 141 mmol/L (136-145)
[2021-04-13] MEDS: FLUoxetine HCl 20 MG CAP PO SCH (08:37)
[2021-04-13] MEDS: IMATINIB MESYLATE 400 MG PO SCH (08:47)
[2021-04-13 10:44] VITALS: BP 117/70; TEMP 97.9
[2021-04-13 11:10] VITALS: BMI 27.3
[2021-04-14] MEDS ORDERED: Spironolactone 25 MG TAB PO SCH (08:00)
== END 2021-04-13 12:45 | disposition home or self-care (01) | DRG 312 ==
LOC: ERS 05:13 → 2SW 08:35 → OBSVTOIN 04-13 11:22
PROVIDERS: ADMIT Family Medicine; ATTEND Internal Medicine
DX: I95.1 Orthostatic hypotension (principal); I42.9 Cardiomyopathy, unspecified; C92.10 Chronic myeloid leukemia, BCR/ABL-positive, not having achieved remission; I50.42 Chronic combined systolic (congestive) and diastolic (congestive) heart failure; N39.0 Urinary tract infection, site not specified; K52.9 Noninfective gastroenteritis and colitis, unspecified; E87.6 Hypokalemia; S09.90XA Unspecified injury of head, initial encounter; W19.XXXA Unspecified fall, initial encounter; Z20.822 Contact with and (suspected) exposure to COVID-19; B96.20 Unspecified Escherichia coli [E. coli] as the cause of diseases classified elsewhere; I08.1 Rheumatic disorders of both mitral and tricuspid valves; Z88.8 Allergy status to other drugs, medicaments and biological substances; Z90.710 Acquired absence of both cervix and uterus; Z98.42 Cataract extraction status, left eye; Z98.41 Cataract extraction status, right eye; Z95.810 Presence of automatic (implantable) cardiac defibrillator; Y92.002 Bathroom of unspecified non-institutional (private) residence as the place of occurrence of the external cause
CPT/HCPCS: 36415; 70450; 71045; 72125; 80048; 80053; 81001; 83735; 83880; 84443; 84484; 85025; 87045; 87046; 87077; 87086; 87186; 87324; 87427; 87449; 90471; 90662; 93005; 93306; 93880; 96374; 96375; 96376; G0008; G0378; J0696; J2405; J3010; J3490; J7030; U0003; U0005

== ENCOUNTER 2021-12-08 10:40 | Emergency (ER) | payer MEDICARE, BC ==
[2021-12-08 11:47] LABS: Hemoglobin 11.9 g/dL (12.0-16.0); Mean Corpuscular HGB CONC 32.3 g/dL (32.0-36.0); Mean Corpuscular Hemoglobin 36.5 pg (27.0-31.0); Mean Platelet Volume 7.2 fL (7.4-10.4); Platelet Count 224 thou/uL (130-400); RBC Distribution Width 12.2 % (11.5-14.5); Red Blood Cell (RBC) Count 3.25 mill/uL (4.20-5.40); White Blood Cell (WBC) Count 5.3 thou/uL (4.8-10.8)
[2021-12-08 12:05] LABS: #Eosinphils 0.2 thou/uL (0.0-0.7); #Lymphocytes 1.6 thou/uL (1.20-3.40); #Monocytes 0.5 thou/uL (0.11-0.59); #Neutrophils 3.1 thou/uL (1.40-6.50); %Basophils 0.5 % (0.0-1.0); %Eosinophils 3.5 % (0.0-10.0); %Lymphocytes 29.2 % (21.0-51.0); %Monocytes 8.4 % (0.0-10.0); %Neutrophils 58.4 % (42.0-75.0); MDiff Complete? YES; Macrocytosis SLIGHT = 6-15 cells (100X) (0-5/hpf); Platelet Morphology Comment Appears Adequate
[2021-12-08 12:08] LABS: ALT (SGPT) 15 U/L (8-55); AST (SGOT) 19 U/L (5-34); Albumin 4.2 g/dL (3.4-4.8); Alkaline Phosphatase 50 U/L (40-110); Anion Gap 15 mmol/L (10-20); BUN (Urea Nitrogen) 12 mg/dL (9.8-20.1); Bilirubin, Total 0.4 mg/dL (0.2-1.2); Calc. Creatinine Clearance 0 mL/min (70-130); Calcium 8.9 mg/dL (7.8-10.44); Carbon Dioxide 21 mmol/L (23-31); Chloride 107 mmol/L (98-107); Globulin 2.4 g/dL (2.4-3.5); Glucose 83 mg/dL (80-115); Potassium 3.7 mmol/L (3.5-5.1); Protein, Total 6.6 g/dL (5.8-8.1); Sodium 139 mmol/L (136-145)
== END 2021-12-08 13:38 | disposition home or self-care (01) ==
LOC: ERS 10:40
DX: T82.111A Breakdown (mechanical) of cardiac pulse generator (battery), initial encounter (principal); R42 Dizziness and giddiness; R29.700 NIHSS score 0; I49.9 Cardiac arrhythmia, unspecified; Z85.6 Personal history of leukemia; Z79.899 Other long term (current) drug therapy
CPT/HCPCS: 71045; 80053; 84484; 85025; 93005

== ENCOUNTER 2022-03-06 09:43 | Outpatient (CLI) | payer MEDICARE, BC | END 2022-03-06 09:44 | disposition home or self-care (01) | LOC: LABBT 09:43 | PROVIDERS: ATTEND Neurological Surgery | DX: Z20.822 Contact with and (suspected) exposure to COVID-19 (principal) | CPT/HCPCS: 87811 ==

== ENCOUNTER 2022-04-01 13:50 | Outpatient (CLI) | payer MEDICARE, BC | END 2022-04-01 13:51 | disposition home or self-care (01) | LOC: LABBT 13:50 | PROVIDERS: ATTEND Neurological Surgery | DX: Z20.822 Contact with and (suspected) exposure to COVID-19 (principal) | CPT/HCPCS: 87811 ==

== ENCOUNTER 2022-04-04 09:40 | Day surgery (SDC) | payer MEDICARE, BC ==
[2022-04-03 11:26] VITALS: BMI 27.4
== END 2022-04-04 13:48 | disposition home or self-care (01) ==
LOC: CT 09:40
PROVIDERS: ATTEND Neurological Surgery
PROC: B01B1ZZ Fluoroscopy of Spinal Cord using Low Osmolar Contrast (ICD-10-PCS; principal; 2022-04-04)
DX: M47.812 Spondylosis without myelopathy or radiculopathy, cervical region (principal); M50.322 Other cervical disc degeneration at C5-C6 level; M43.12 Spondylolisthesis, cervical region; M48.02 Spinal stenosis, cervical region; M19.90 Unspecified osteoarthritis, unspecified site; C92.10 Chronic myeloid leukemia, BCR/ABL-positive, not having achieved remission; I42.0 Dilated cardiomyopathy; J32.3 Chronic sphenoidal sinusitis; Z79.899 Other long term (current) drug therapy; Z88.5 Allergy status to narcotic agent; Z95.0 Presence of cardiac pacemaker
CPT/HCPCS: 62302; 72126

== ENCOUNTER 2024-05-05 09:06 | Outpatient (CLI) | payer MEDICARE, BC | END 2024-05-05 09:07 | disposition home or self-care (01) | LOC: CT 09:06 | PROVIDERS: ATTEND Orthopaedic Surgery | DX: M48.061 Spinal stenosis, lumbar region without neurogenic claudication (principal); M47.816 Spondylosis without myelopathy or radiculopathy, lumbar region; M47.817 Spondylosis without myelopathy or radiculopathy, lumbosacral region | CPT/HCPCS: 72131 ==